=== PATIENT | female | born 1935 | race Caucasian/White ===

== ENCOUNTER 2017-03-10 10:10 | Inpatient (IN) | payer MEDICARE, OTHER ==
--- NOTE | ~2017-03-10 | OP ---
Record Of Operation [facility] [address] [place]. [address] NAME: PRISCILA FINLEY : 39 STATUS : DIS IN PAT#: [id number] AGE: 82 ADM/REG DATE : 03/10/17 MR#: [id number] REPORT SERV DATE: 03/12/17 DICTATED BY: MARAL SHEEHANGILBERTO JOSEPH DATE: 03/12/17 REPORT STATUS : Draft TRANSCRIBED BY: CEZAR DATE: 03/12/17 DATE OF PROCEDURE: 03/10/2017 DOOR CLAMP OPERATOR: Dominique Bronson M.D. PREOPERATIVE DIAGNOSES: 1. Peripheral vascular disease. 2. Rest pain, left foot. POSTOPERATIVE DIAGNOSES: 1. Peripheral vascular disease. 2. Rest pain, left foot. PROCEDURES: 1. Abdominal aortogram. 2. Left leg angiogram. 3. Selective views of the left peroneal and anterior tibial artery. 4. Percutaneous angioplasty of the left peroneal artery. 5. Percutaneous angioplasty of the left anterior tibial artery. ANESTHESIA: General. IV FLUIDS: 400 mL. ESTIMATED BLOOD LOSS: 25 mL. CONTRAST: 73 mL. DETAILS: Patient was taken to the operating room and placed in supine position on the table. General anesthesia was achieved. We then prepped and draped in a sterile fashion. The entire left leg was prepped. We still identify the right common femoral artery. It was patent and compressible. A photograph was taken and placed on the chart. We performed a puncture and placed a 5-Algerian sheath and then passed a catheter into the abdominal aorta. The aortogram was performed demonstrating a patent abdominal aorta and iliac vessels with no significant stenosis seen. There was no dissection or aneurysm. I then passed a catheter into the common femoral. Left leg angiogram demonstrated the patent common profunda and superficial femoral artery with minimal stenotic seen. We then evaluated the tibial vessels. We placed in a catheter within the popliteal artery. This demonstrated severe tibial disease. The posterior tibial was the only vessel that was patent to the foot and was diffusely small and diseased. The peroneal was patent proximally, but it occluded in the mid leg, mid calf, and then reconstitutes distally. The anterior tibial is patent, however, it occludes distally and reconstitutes at the ankle. We then heparinized the patient and passed a 6-Algerian sheath over the bifurcation. We elected to proceed with treatment of the tibial disease. I passed a catheter into the peroneal, performed a contrast injection. It again demonstrates it to be patent, but then occludes with severe stenosis distally and then reconstitution of the ankle. I was able to pass a Record Of Operation [address] [place]. [address] NAME: PRISCILA FINLEY : 39 STATUS : DIS IN PAT#: [id number] AGE: 82 ADM/REG DATE : 03/10/17 MR#: [id number] REPORT SERV DATE: 03/12/17 DICTATED BY: GILBERTO ALICIA II DATE: 03/12/17 REPORT STATUS : Draft TRANSCRIBED BY: CEZAR DATE: 03/12/17 wire through this and an angioplasty was performed of the distal two-thirds of the peroneal artery using a 2 mm balloon followed by a 2.5 mm balloon. Completion demonstrates a good result with improved flow. The main body of the peroneal was now widely patent with good flow demonstrated distally into multiple collaterals. We then removed the catheter from the peroneal and placed a catheter into the anterior tibial, performed an angiogram that again demonstrates a distal occlusion within the distal one-third of the vessel. I was able to pass a wire through this and I entered into the true lumen of the anterior tibial at the ankle. We then ballooned this with a 2.5 mm balloon. Completion demonstrates a good result now with good flow demonstrated throughout the entire course with rapid flow demonstrated into the foot. We then removed all the wires and catheters. At the end of procedure, the patient was stable. She tolerated it well. VICTOR MANUEL/CEZAR Gilberto Alicia II, M.D. / [id number] CC: Gilberto Alicia II, M.D.
[~2017-03-10 10:10] MED LIST: ASAB PO; FISH OIL1200 MG PO; HYZAAR 100/25 T1 TAB PO; JANTOVEN5 MG PO; JANTOVEN6 MG PO; KRILLOIL; LIPITOR40 PO; LOP100 PO; LOP25 PO; MACROBID PO; MAGOX4 PO; MYCOSCROI TOP; NEXIUM20 M1 PO; NEXIUM40 PO; NORV5 PO; PRILOSEC40 MG PO; RED YEAS1 OR; RYTHMOL225 MG PO; TOPXL100 PO; TOPXL50 PO; ZOCOR40 PO
[2017-03-10 11:11] LABS: BASOPHILS 0.4 %; BASOPHILS ABSOLUTE 0.03 10/3/uL (0.0-0.16); EOSINOPHILS ABSOLUTE 0.57 10/3/uL (0.0-0.53); ER CBC TAT 0 Hrs 03 Mins; HEMATOCRIT 35.4 % (36.0-48.0); IMMATURE GRANULOCYTES 0.2 %; IMMATURE GRANULOCYTES ABSOLUTE 0.02 10/3/uL (0.0-0.11); LYMPHOCYTES 18.6 %; LYMPHOCYTES ABSOLUTE 1.51 10/3/uL (0.67-4.30); MEAN CORPUS HGB CONC 33.9 g/dL (32.0-36.0); MEAN CORPUSCULAR HEMOGLOB 27.2 pg (26.0-34.0); MEAN CORPUSCULAR VOLUME 80.3 fL (80-100); MONOCYTES 8.2 %; MONOCYTES ABSOLUTE 0.67 10/3/uL (0.21-1.20); NEUTROPHILS 65.6 %; NEUTROPHILS ABSOLUTE 5.34 10/3/uL (2.02-8.40); PLATELET COUNT 284 10/3/uL (150-400); RBC DISTRIBUTION WIDTH 14.4 % (12.0-16.0); RED CELL COUNT 4.41 10/6/uL (4.0-5.6); WHITE BLOOD CELLS 8.1 10/3/uL (4.5-10.5)
[2017-03-10 11:12] LABS: MANUAL DIFF NO %
[2017-03-10 11:20] LABS: INTERNATIONAL NORMAL RATI 1.6 UNITS (-); PARTIAL THROMBO TIME 45.4 SEC (22.5-37.2); PROTIME (NOT ORD) 19.1 SEC (12.0-14.5)
[2017-03-10 11:58] LABS: A/G RATIO 0.9 (0.7-1.9); ALBUMIN 3.7 G/DL (3.5-5.0); BUN (BLOOD UREA NITROGEN) 13 MG/DL (6-23); CALCIUM, SERUM 9.7 MG/DL (8.5-10.4); CHLORIDE, SERUM 98 MMOL/L (96-112); CO2 (CARBON DIOXIDE) 28 MMOL/L (24-34); CREATININE 0.65 MG/DL (0.55-1.02); GFR AFRICAN AMERICAN 97 ML/MIN (>=60); GFR NON AFRICAN AMERICAN 84 ML/MIN (>=60); GLOBULIN 3.9 G/DL (2.5-4.1); GLUCOSE, SERUM 93 MG/DL (60-99); POTASSIUM, SERUM 3.6 MMOL/L (3.5-5.3); SGOT(AST) 16 U/L (5-40); SGPT(ALT) 19 U/L (5-65); SODIUM, SERUM 136 MMOL/L (135-148); TOTAL BILIRUBIN 0.5 MG/DL (0-1.2); TOTAL PROTEIN 7.6 G/DL (6.0-8.5)
[2017-03-10 12:03] LABS: ALKALINE PHOSPHATASE 95 U/L (45-117)
[2017-03-10] MEDS ORDERED: LOP100 PO (12:03)
[2017-03-10] MEDS ORDERED: HYZAAR 100/25 T1 TAB PO (12:03)
[2017-03-10] MEDS ORDERED: HALF81 PO (12:03)
[2017-03-10] MEDS ORDERED: NORV5 PO (12:04)
[2017-03-10] MEDS ORDERED: JANTOVEN4 MG PO (12:04)
[2017-03-10] MEDS ORDERED: CRANBERRY300 MG PO (12:04)
[2017-03-10] MEDS ORDERED: KRILLOIL PO (12:04)
[2017-03-10] MEDS ORDERED: NEXIUM40 PO (12:04)
[2017-03-11 06:50] LABS: INTERNATIONAL NORMAL RATI 2.4 UNITS (-)
[2017-03-11 06:51] LABS: PARTIAL THROMBO TIME 82.1 SEC (22.5-37.2)
[2017-03-11 07:53] LABS: BASOPHILS 0.3 %; BASOPHILS ABSOLUTE 0.03 10/3/uL (0.0-0.16); EOSINOPHILS 5.9 %; EOSINOPHILS ABSOLUTE 0.54 10/3/uL (0.0-0.53); HEMATOCRIT 32.8 % (36.0-48.0); HEMOGLOBIN 11.1 g/dL (12.0-16.0); IMMATURE GRANULOCYTES 0.2 %; IMMATURE GRANULOCYTES ABSOLUTE 0.02 10/3/uL (0.0-0.11); LYMPHOCYTES 11.8 %; LYMPHOCYTES ABSOLUTE 1.09 10/3/uL (0.67-4.30); MEAN CORPUS HGB CONC 33.8 g/dL (32.0-36.0); MEAN CORPUSCULAR HEMOGLOB 27.1 pg (26.0-34.0); MEAN CORPUSCULAR VOLUME 80.2 fL (80-100); MEAN PLATELET VOLUME 9.6 fL (9.2-13.0); MONOCYTES 6.4 %; MONOCYTES ABSOLUTE 0.59 10/3/uL (0.21-1.20); NEUTROPHILS 75.4 %; NEUTROPHILS ABSOLUTE 6.96 10/3/uL (2.02-8.40); PLATELET COUNT 251 10/3/uL (150-400); RBC DISTRIBUTION WIDTH 14.4 % (12.0-16.0); RED CELL COUNT 4.09 10/6/uL (4.0-5.6); WHITE BLOOD CELLS 9.2 10/3/uL (4.5-10.5)
[2017-03-11 07:55] LABS: MANUAL DIFF NO %
[2017-03-11 08:07] LABS: BUN (BLOOD UREA NITROGEN) 10 MG/DL (6-23); CALCIUM, SERUM 9.3 MG/DL (8.5-10.4); CHLORIDE, SERUM 96 MMOL/L (96-112); CO2 (CARBON DIOXIDE) 29 MMOL/L (24-34); CREATININE 0.64 MG/DL (0.55-1.02); GFR AFRICAN AMERICAN 98 ML/MIN (>=60); GFR NON AFRICAN AMERICAN 84 ML/MIN (>=60); GLUCOSE, SERUM 140 MG/DL (60-99); POTASSIUM, SERUM 3.4 MMOL/L (3.5-5.3); SODIUM, SERUM 133 MMOL/L (135-148)
[2017-03-12 05:33] LABS: INTERNATIONAL NORMAL RATI 1.5 UNITS (-)
[2017-03-12 05:41] LABS: PROTIME (NOT ORD) 18.4 SEC (12.0-14.5)
== END 2017-03-12 17:04 | disposition home or self-care (01) | DRG 253 ==
LOC: ER 10:10 → 2SO 14:05
PROVIDERS: Emergency Medicine; Surgery
PROC: B4101ZZ Fluoroscopy of Abdominal Aorta using Low Osmolar Contrast (ICD-10-PCS; 2017-03-10)
PROC: B41G1ZZ Fluoroscopy of Left Lower Extremity Arteries using Low Osmolar Contrast (ICD-10-PCS; 2017-03-10)
PROC: 04HK33Z Insertion of Infusion Device into Right Femoral Artery, Percutaneous Approach (ICD-10-PCS; 2017-03-10)
PROC: 3E05317 Introduction of Other Thrombolytic into Peripheral Artery, Percutaneous Approach (ICD-10-PCS; 2017-03-10)
PROC: 047Q3ZZ Dilation of Left Anterior Tibial Artery, Percutaneous Approach (ICD-10-PCS; principal; 2017-03-10 16:15)
PROC: B41D1ZZ Fluoroscopy of Aorta and Bilateral Lower Extremity Arteries using Low Osmolar Contrast (ICD-10-PCS; 2017-03-10 16:15)
DX: I70.222 Atherosclerosis of native arteries of extremities with rest pain, left leg (principal); L76.32 Postprocedural hematoma of skin and subcutaneous tissue following other procedure; I10 Essential (primary) hypertension; K21.9 Gastro-esophageal reflux disease without esophagitis; M79.7 Fibromyalgia; Z96.653 Presence of artificial knee joint, bilateral; Z95.0 Presence of cardiac pacemaker; Z79.82 Long term (current) use of aspirin; Z79.01 Long term (current) use of anticoagulants; Z79.899 Other long term (current) drug therapy; Z86.73 Personal history of transient ischemic attack (TIA), and cerebral infarction without residual deficits; Z98.890 Other specified postprocedural states; Y83.8 Other surgical procedures as the cause of abnormal reaction of the patient, or of later complication, without mention of misadventure at the time of the procedure
CPT/HCPCS: 37228; 37232; 75625; 75710; 76937; 80048; 80053; 85025; 85610; 85730; 93005; 93926; 97116-GP; 97161-GP; 99284; A9270-GY; C1725; C1760; C1769; C1894; G8978-CK-GP; G8979-CI-GP; J0690; J2997; J3010; Q9966